=== PATIENT | male | born 1975 | race Caucasian/White ===

== ENCOUNTER → 2023-08-10 06:59 | Outpatient (REF) | payer BC, SELFPAY ==
[2023-08-10 08:05] LABS: % Basophils 0.8 % (0-2); % Eosinophils 1.6 % (0-6); % Immature Granulocytes 0.3 % (0-0.5); % Lymphocytes 30.8 % (20.5-51.1); % Monocytes 6.3 % (1.7-9.3); % Neutrophils 60.2 % (42.2-75.2); Absolute Basophils 0.1 10^3/uL (0-0.2); Absolute Eosinophils 0.1 10^3/uL (0-0.7); Absolute Lymphocytes 1.9 10^3/uL (1.2-3.4); Absolute Monocytes 0.4 10^3/uL (0.1-0.6); Absolute Neutrophils 3.7 10^3/uL (1.4-6.5); Hematocrit 41.7 % (39.0-52.0); Hemoglobin 14.9 g/dL (13.0-18.0); Mean Corp Hgb Conc. 35.7 g/dL (33.0-37.0); Mean Corpuscular Hgb 31.4 pg (27.0-31.0); Mean Corpuscular Volume 87.8 fL (80.0-94.0); Mean Platelet Volume 12.1 fL (7.4-10.4); Nucleated Red Blood Cells % 0 % (-); Platelet Count 163 10^3/uL (130-400); Red Blood Cell Count 4.75 10^6/uL (4.70-6.10); Red Cell Dist. Width 12.9 % (11.5-14.5); White Blood Cell Count 6.2 10^3/uL (4.8-10.8)
[2023-08-10 08:42] LABS: ALT (SGPT) 37 U/L (0-50); AST (SGOT) 36 U/L (17-59); Albumin 4.6 g/dl (3.5-5.0); Alkaline Phosphatase 70 U/L (38-126); Blood Urea Nitrogen 18 mg/dl (9-20); Calcium 9.5 mg/dl (8.4-10.2); Carbon Dioxide 30 mmol/L (22-30); Chloride 101 mmol/L (98-107); Glucose 98 mg/dl (70-99); HDL Cholesterol 38 mg/dl; Sodium 139 mmol/L (135-145); Total Bilirubin 0.9 mg/dl (0.2-1.3); Total Cholesterol 238 mg/dl (50-199); Total Protein 7.4 g/dl (6.3-8.2); Uric Acid 6.6 mg/dl (3.5-8.5); eGFR > 60.00
[2023-08-10 08:44] LABS: Triglyceride 480 mg/dl (10-149)
[2023-08-10 09:12] LABS: LDL Cholesterol, Direct 110 mg/dl; PSA, Total - Screen 0.66 ng/ml (0.0-4.0); TSH 1.39 uIU/ml (0.47-4.68)
== END ==
LOC: REG 06:59
PROVIDERS: ATTENDING PHYSICIAN Physician Assistant Medical
DX: E78.2 Mixed hyperlipidemia (principal); N40.1 Benign prostatic hyperplasia with lower urinary tract symptoms; Z00.00 Encounter for general adult medical examination without abnormal findings; Z13.29 Encounter for screening for other suspected endocrine disorder; Z13.0 Encounter for screening for diseases of the blood and blood-forming organs and certain disorders involving the immune mechanism; M10.9 Gout, unspecified; Z12.5 Encounter for screening for malignant neoplasm of prostate; Z13.1 Encounter for screening for diabetes mellitus
CPT/HCPCS: 36415; 80053; 80061; 83721; 84443; 84550; 85025; G0103

== ENCOUNTER 2023-09-13 16:21 | Emergency (ER) | payer BC, SELFPAY ==
[2023-09-13 16:26] VITALS: BP 136/90; BMI 26.1
[2023-09-13 16:58] LABS: % Basophils 0.7 % (0-2); % Eosinophils 0.9 % (0-6); % Immature Granulocytes 0.2 % (0-0.5); % Lymphocytes 31.8 % (20.5-51.1); % Monocytes 7.2 % (1.7-9.3); % Neutrophils 59.2 % (42.2-75.2); Absolute Basophils 0.1 10^3/uL (0-0.2); Absolute Eosinophils 0.1 10^3/uL (0-0.7); Absolute Lymphocytes 2.6 10^3/uL (1.2-3.4); Absolute Monocytes 0.6 10^3/uL (0.1-0.6); Absolute Neutrophils 4.8 10^3/uL (1.4-6.5); Hematocrit 39.2 % (39.0-52.0); Hemoglobin 14.4 g/dL (13.0-18.0); Mean Corp Hgb Conc. 36.7 g/dL (33.0-37.0); Mean Corpuscular Hgb 31.6 pg (27.0-31.0); Mean Platelet Volume 11.9 fL (7.4-10.4); Nucleated Red Blood Cells % 0 % (-); Platelet Count 175 10^3/uL (130-400); Red Blood Cell Count 4.56 10^6/uL (4.70-6.10); Red Cell Dist. Width 13.1 % (11.5-14.5); White Blood Cell Count 8.2 10^3/uL (4.8-10.8)
[2023-09-13 17:09] LABS: ALT (SGPT) 31 U/L (0-50); AST (SGOT) 35 U/L (17-59); Albumin 4.8 g/dl (3.5-5.0); Alkaline Phosphatase 65 U/L (38-126); Blood Urea Nitrogen 23 mg/dl (9-20); Calcium 9.6 mg/dl (8.4-10.2); Carbon Dioxide 23 mmol/L (22-30); Chloride 107 mmol/L (98-107); Estimated Creatinine Clearance 87 ml/min; Glucose 89 mg/dl (70-99); Potassium 4.4 mmol/L (3.5-5.1); Sodium 138 mmol/L (135-145); Total Bilirubin 0.4 mg/dl (0.2-1.3); Total Protein 7.4 g/dl (6.3-8.2); eGFR > 60.00
[2023-09-13 17:20] LABS: Troponin I < 0.012 ng/ml
[2023-09-13 17:29] VITALS: BP 126/93
--- NOTE | 2023-09-13 17:51 | ED.GENMED ---
History of Present Illness
General
Chief Complaint: Chest Pain
Source: patient
Exam Limitations: none
Time Seen by Provider: 09/13/23 17:35
Nursing documentation reviewed up to this point in time: agreed with
History of Present Illness
History of Present Illness:
48 male playing baseball ran into by another player at high speed, wind knocked out of him, pain in right chest with sob, no alcohol, no blood thinners, occured at 12 noon today
Past History
Past History
ED Past Medical History: Hypercholesterolemia, Psychiatric (panic disorder, anxiety) and Other (gout, COVID positive)
ED Past Surgical History: Other (left shoulder surgery)
Social History
Tobacco: Former smoker (1 PPD for 15-20 years, quit September 2002.)
Alcohol: Occasional (Currently drinking 2-3 drinks weekly. Was previously drinking 2-3 drinks daily prior to Sep 2019.)
Drug: None
Personal:
Living: with family
Employment: Employed
Family History
Family History: CAD; Negative Early CAD
Review of Systems
Review of Systems
All Other Systems: Not applicable
Respiratory: Reports trouble breathing
Cardiac: Reports chest pain
ABD/GI: Reports no symptoms
: Reports no symptoms
Musculoskeletal: Reports no symptoms
Skin: Reports no symptoms
Phy Exam
General Physical Exam
General Presentation: well appearing
ENT Exam
ENT Exam: normocephalic
Cardiovascular Exam
Cardiovascular Exam: regular rate/rhythm
Pulmonary Exam
Pulmonary Exam: lungs clear and other (tender right chest wall, no crepitanace)
Gastrointestinal Exam
Gastrointestinal Exam: non tender
Neurological Exam
Neurological Exam: alert and oriented x3
Mental
Mental Status: oriented to person, oriented to place, oriented to time and usual mental status
Describe Speech: normal speech
Skin Exam
Skin Exam: normal color
Psychiatric Exam
Psychiatric Exam: normal mood/affect
Scores
Heart Score for Chest Pain Patients
STEMI patient?: No
History: Slightly or Non-Suspicious
ECG: Normal
Age: >45 - <65 years
Risk Factors: No Risk Factors
Troponin: </= Normal Limit
Heart Score for Chest Pain Patients: 1
Heart Score Risk: 2.5% MACE over next 6 weeks
Course
Orders/Labs/Results
Orders:
Orders
09/13/23 16:29
Electrocardiogram (*1) Urgent
Reason for Study: Chest Pain
EKG- Treatment ONCE
CXR2 [CR Chest - 2 Views ] Urgent
Comment:
Reason For Exam: pain
09/13/23 16:39
Complete Blood Count/With Diff Urgent
Comprehensive Metabolic Panel Urgent
Troponin I Urgent
09/13/23 17:48
Ibuprofen [Motrin] 600 mg PO NOW STA
Incentive Spirometry [Rx Incentive Spirometry] [RESP] Urgent
Frequency: q1h while awake
Abnormal Lab Results
09/13/23
16:39
RBC 4.56 L 10^6/uL
(4.70-6.10)
MCH 31.6 H pg
(27.0-31.0)
MPV 11.9 H fL
(7.4-10.4)
BUN 23 H mg/dl
(9-20)
09/13/23 16:39
09/13/23 16:39
Vital Signs
Initial and Last Documented VS:
Initial Vital Signs
Temp Pulse Resp BP Pulse Ox
98.2 F 68 16 136/90 100
09/13/23 16:26 09/13/23 16:26 09/13/23 16:26 09/13/23 16:26 09/13/23 16:26
Last Documented Vital Signs
Temp Pulse Resp BP Pulse Ox
98.2 F 68 17 126/93 99
09/13/23 16:26 09/13/23 18:00 09/13/23 18:00 09/13/23 17:29 09/13/23 18:00
MDM/Problems Addressed
Differential Diagnosis Includes:
contusion, ptx, rib fx, no sign of sig head neck trauma, soft nt abdomen
MDM/Problems Addressed:
chest pain
*Radiology
Radiology exam reviewed: preliminary read by ED provider
*Pulse Oximetry
Patient hypoxic: no
*EKG
Interpreted by ED Provider?: Yes
Interpretation: normal
Comparison EKG: no comparison EKG present
Heart Rate: 78
Rate: normal
Ischemia: no ischemia
*[employer] Interpretation
Rate: normal
Interpretation: normal
Heart Rate: 78
Rhythm: sinus
*Critical Care Note
Total Time (30-74mins, 75-104mins- exclusive of procedures): Not Applicable
Update Note
Update Note:
clearly m/s, will check CXR r/o pTx
updated, cxr noted, no ptx to my view
ED Attending Note
-
Portions of this chart may have been created with voice recognition software.� Occasional wrong word or��sound alike� substitutions may have occurred due to the inherent limitations of voice recognition software.
Discharge Plan
Departure
Patient Disposition: Home (Routine Discharge)
Date of Disposition: 09/13/23
Time of Disposition: 18:15
Patient with high blood pressure during this ER visit?: No
Condition: Good
Discharge Problem:
Chest wall contusion
Instructions: How to Use an Incentive Spirometer, Blunt Chest Trauma (DC)
Prescriptions:
New
ibuprofen 600 mg tablet
600 mg PO Q6H PRN (Reason: Pain) Qty: 20 0RF
oxycodone-acetaminophen [Percocet] 5-325 mg tablet
1 tab PO Q6HPRN PRN (Reason: pain) Qty: 7 0RF
No Action
allopurinol 100 MG tablet
100 mg PO DAILY
docosahexaenoic acid-epa 1 CAP capsule
1 cap PO DAILY
glucosamine huggins 2KCl-chondroit [Glucosamine Sulf-Chondroitin] 1 EACH capsule
3 cap PO HS
mv,Ca,kko-jmhw-WA-lycopene [Centrum Men] 1 EACH tablet
1 ea PO DAILY
Turmeric
1 tab PO DAILY
aspirin 81 MG tablet,chewable
81 mg PO DAILY Qty: 14 0RF
Rx Instructions:
Take 81 mg daily for 14 days
melatonin 5 MG tablet
5 mg PO HS Qty: 14 0RF
Rx Instructions:
Take 5 mg daily at bedtime for 14 days
acetaminophen [Tylenol Extra Strength] 500 MG tablet
1,000 mg PO PRN PRN (Reason: fever )
famotidine 20 MG tablet
20 mg PO BID
ascorbic acid (vitamin C) [Vitamin C] 500 MG tablet
1,000 mg PO BID
zinc sulfate 220 MG capsule
220 mg PO DAILY
cholecalciferol (vitamin D3) 1,000 UNITS tablet
2,000 units PO DAILY
dexamethasone [Decadron] 6 MG tablet
6 mg PO DAILY AT 0700 Qty: 6 0RF
Referrals:
Wellington Stiles PA-C [Family Provider] -
Interventions
Interventions:
*Risk Screen - Suicide Last Done: 09/13/23 16:26
*General Assessment Last Done: 09/13/23 17:31
*Neglect/Abuse Screening Last Done: 09/13/23 16:26
ED- Fall Risk Assessment Last Done: 09/13/23 16:26
*ED COVID-19 Vaccine History Last Done: 09/13/23 17:31
ED- Cardiac Assessment Last Done: 09/13/23 17:31
Discharge Date and Time
Print Language: ALBANIAN
[2023-09-13 18:17] VITALS: BP 124/93
[2023-09-13] MEDS: MOTRIN 600 MG PO (18:17)
== END 2023-09-13 18:40 | disposition home or self-care (01) ==
LOC: EMR 16:21
PROVIDERS: Emergency Medicine; EMERGENCY PHYSICIAN Emergency Medicine; FAMILY PHYSICIAN Physician Assistant Medical
DX: S20.211A Contusion of right front wall of thorax, initial encounter (principal); W50.0XXA Accidental hit or strike by another person, initial encounter; Z87.891 Personal history of nicotine dependence; Y93.64 Activity, baseball
CPT/HCPCS: 99285; 71046; 80053; 84484; 85025; 93005

== ENCOUNTER → 2023-11-27 09:24 | Outpatient (REF) | payer BC, SELFPAY | LOC: RCS 09:24 | PROVIDERS: ATTENDING PHYSICIAN Nuclear Medicine Nuclear Cardiology; FAMILY PHYSICIAN Physician Assistant Medical | DX: R07.9 Chest pain, unspecified (principal); Z82.49 Family history of ischemic heart disease and other diseases of the circulatory system | CPT/HCPCS: 93306 ==

== ENCOUNTER → 2023-11-27 09:24 | Outpatient (REF) | payer SELFPAY | LOC: RAD 09:24 | PROVIDERS: ATTENDING PHYSICIAN Nuclear Medicine Nuclear Cardiology; FAMILY PHYSICIAN Physician Assistant Medical | DX: E78.1 Pure hyperglyceridemia (principal); E78.2 Mixed hyperlipidemia; Z82.49 Family history of ischemic heart disease and other diseases of the circulatory system | CPT/HCPCS: 75571 ==

== ENCOUNTER 2024-02-05 06:29 | Day surgery (SDC) | payer BC, SELFPAY | END 2024-02-05 09:29 | disposition home or self-care (01) | LOC: GI 06:29 | PROVIDERS: ATTENDING PHYSICIAN Internal Medicine | DX: Z12.11 Encounter for screening for malignant neoplasm of colon (principal); D12.8 Benign neoplasm of rectum; K64.8 Other hemorrhoids; Z80.0 Family history of malignant neoplasm of digestive organs | CPT/HCPCS: 45380; 88305 ==

== ENCOUNTER → 2024-03-28 15:23 | Outpatient (REF) | payer BC, SELFPAY | LOC: PAVMRI 15:23 | PROVIDERS: ATTENDING PHYSICIAN Physical Medicine & Rehabilitation; FAMILY PHYSICIAN Physician Assistant Medical | DX: S56.911A Strain of unspecified muscles, fascia and tendons at forearm level, right arm, initial encounter (principal) | CPT/HCPCS: 73221 ==

== ENCOUNTER → 2024-11-08 09:21 | Outpatient (REF) | payer BC, SELFPAY ==
[2024-11-08 18:27] LABS: Hematocrit 45.2 % (39.0-52.0); Hemoglobin 15.2 g/dL (13.0-18.0); Mean Corp Hgb Conc. 33.6 g/dL (33.0-37.0); Mean Corpuscular Volume 92.2 fL (80.0-94.0); Nucleated Red Blood Cells % 0 % (-); Platelet Count 170 10^3/uL (130-400); Red Cell Dist. Width 13.2 % (11.5-14.5)
[2024-11-08 19:29] LABS: ALT (SGPT) 40 U/L (0-50); AST (SGOT) 30 U/L (17-59); Albumin 4.9 g/dl (3.5-5.0); Alkaline Phosphatase 58 U/L (38-126); Blood Urea Nitrogen 19 mg/dl (9-20); Calcium 9.7 mg/dl (8.4-10.2); Carbon Dioxide 28 mmol/L (22-30); Chloride 102 mmol/L (98-107); Glucose 86 mg/dl (70-99); HDL Cholesterol 41 mg/dl; LDL Cholesterol, Calculated 129 mg/dl; Potassium 4.4 mmol/L (3.5-5.1); Sodium 138 mmol/L (135-145); Total Protein 8.0 g/dl (6.3-8.2); Uric Acid 7.1 mg/dl (3.5-8.5); Very Low Density Lipoprotein 76 mg/dl (0-30); eGFR > 60.00
[2024-11-08 19:59] LABS: PSA, Total - Screen 0.62 ng/ml (0.0-4.0); TSH 1.55 uIU/ml (0.47-4.68)
== END ==
LOC: CLAB 09:21
PROVIDERS: ATTENDING PHYSICIAN Physician Assistant Medical
DX: Z00.00 Encounter for general adult medical examination without abnormal findings (principal); E78.2 Mixed hyperlipidemia; E66.3 Overweight; M10.9 Gout, unspecified
CPT/HCPCS: 36415; 80053; 80061; 84443; 84550; 85025; G0103